=== PATIENT | male | born 1980 | race Caucasian/White ===

== ENCOUNTER 2017-02-18 00:18 | Observation (INO) | payer OTHER ==
--- NOTE | 2017-02-18 00:27 | ED ---
Abdominal Pain HPI - General Stated Complaint: apendix pain Time Seen by Provider: 02/18/17 00:18 Source: patient, RN/MD, EMS, RN notes reviewed, old records reviewed - History of Present Illness Initial Comments: This is a 36-year-old male with a benign past medical history states he started having lower abdominal pain at 6 PM yesterday. It persisted throughout the night. He finally went to [facility] past evening and had a workup which showed elevated white blood cell count and a computed tomography scan showed possible early appendicitis. Patient points to McBurney's point is area pain he currently is pain 1-2/10 severity no current nausea vomiting or other symptoms she did have chills and sweats with it started approximately 30 hours ago. He denies a nausea vomiting diarrhea dysuria hematuria at this time. He has no other medical problems he last ate at 3:30 PM this past afternoon. MD Complaint: abdominal pain Review of Systems ROS Statement: Those systems with pertinent positive or pertinent negative responses have been documented in the HPI. ROS Other: All systems not noted in ROS Statement are negative. General Exam - General Exam Comments Initial Comments: This is a well-developed well-nourished awake alert oriented times 3 male General appearance: alert, in no apparent distress Head exam: Present: atraumatic, normocephalic, normal inspection Eye exam: Present: normal appearance, PERRL, EOMI. Absent: scleral icterus, conjunctival injection, periorbital swelling ENT exam: Present: normal exam, mucous membranes moist Neck exam: Present: normal inspection. Absent: tenderness, meningismus, lymphadenopathy Respiratory exam: Present: normal lung sounds bilaterally. Absent: respiratory distress, wheezes, rales, rhonchi, stridor Cardiovascular Exam: Present: regular rate, normal rhythm, normal heart sounds. Absent: systolic murmur, diastolic murmur, rubs, gallop, clicks GI/Abdominal exam: Present: soft, tenderness (Right lower quadrant tenderness palpation over McBurney's point some voluntary guarding no rebound), normal bowel sounds. Absent: distended, guarding, rebound, rigid Rectal exam: Present: deferred Extremities exam: Present: normal inspection, full ROM, normal capillary refill. Absent: tenderness, pedal edema, joint swelling, calf tenderness Back exam: Present: normal inspection Neurological exam: Present: alert, oriented X3, CN II-XII intact Psychiatric exam: Present: normal affect, normal mood Skin exam: Present: warm, dry, intact, normal color. Absent: rash Medical Decision Making - Medical Decision Making I did review the report sent from [facility] patient will be admitted case was discussed with Dr. Bronwing Disposition Clinical Impression: Appendicitis, Abdominal pain Disposition: ADMITTED IP TO THIS [facility] Condition: Stable Referrals: Michelle Ovalle NPC [REFERRING] - 1-2 days
[2017-02-18] MEDS ORDERED: ONDANSETRON 4 MG/2 ML VIAL IVP PRN (00:31)
[2017-02-18] MEDS ORDERED: NALOXONE 0.4 MG/ML 1 ML VIAL IV PRN ×2 (00:31→18:40)
[2017-02-18] MEDS ORDERED: PIPERACILLIN-TAZOBACTAM 3.375 GM in DEXTROSE/WATER 1 50ML.BAG IVPB STA (00:43)
[2017-02-18] MEDS: SODIUM CHLORIDE 0.9% 1,000 ML IV STA ×2 (01:01→09:25)
[2017-02-18 01:53] VITALS: BMI 25.1
[2017-02-18] MEDS: HYDROmorphone 1 MG/ML 1 ML SYRINGE IV PRN ×3 (07:15→14:00)
[2017-02-18 08:30] LABS: Basophils % (A) 0 %; CH 29.9; CHCM 33.5; Eosinophils # (A) 0.1 k/uL (0-0.7); Eosinophils % (A) 1 %; HCT 46.1 % (39.0-53.0); HGB 15.7 gm/dL (13.0-17.5); Luc # (Auto) 0.12; Luc % (Auto) 1; Lymphocytes # (A) 1.2 k/uL (1.0-4.8); Lymphocytes % (A) 9 %; MCH 30.7 pg (25.0-35.0); MCHC 34.1 g/dL (31.0-37.0); MCV 89.8 fL (80.0-100.0); Mean Platelet Volume 7.4; Monocytes # (A) 0.5 k/uL (0-1.0); Monocytes % (A) 3 %; Neutrophils # (A) 11.7 k/uL (1.3-7.7); Neutrophils % (A) 86 %; RBC 5.13 m/uL (4.30-5.90); RDW 12.5 % (11.5-15.5); WBC 13.7 k/uL (3.8-10.6); WBC (Perox) 14.42
[2017-02-18 08:35] LABS: Anion Gap 9 mmol/L; Blood Urea Nitrogen 10 mg/dL (9-20); Calcium 9.1 mg/dL (8.4-10.2); Carbon Dioxide 23 mmol/L (22-30); Chloride 108 mmol/L (98-107); Glucose 101 mg/dL (74-99); Non-African American GFR(MDRD) >60 (>60 ml/min/1.73 sqM); Potassium 4.3 mmol/L (3.5-5.1); Sodium 140 mmol/L (137-145)
--- NOTE | 2017-02-18 11:35 | P.GSHP ---
History of Present Illness H&P Date: 02/18/17 Chief Complaint: Right lower quadrant pain 36-year-old male transferred from [facility] patient was being evaluated for right lower quadrant pain onset evening of the admission. Patient stated the pain continued to persist became concerned when to [facility] had a workup showed an elevated white count CAT scan showed possible early at appendicitis. Patient stated that he had been having the pain for's last 30 hours. Patient came into the [facility] was advised to be transferred to [facility] for further surgical workup. Patient continues to report having right lower quadrant abdominal pain. Reports no nausea vomiting. No shortness of breath no chest pain or dizziness lightheadedness Patient has no significant past medical history. The white count on admission was 13.7. Electrolytes within normal limits. - Review of Systems Comment: Essentially unremarkable except as mentioned in the present illness Past Medical History Past Medical History: No Reported History History of Any Multi-Drug Resistant Organisms: None Reported Past Surgical History: No Surgical Hx Reported Past Anesthesia/Blood Transfusion Reactions: No Reported Reaction Past Psychological History: No Psychological Hx Reported Smoking Status: Former smoker Past Alcohol Use History: None Reported Past Drug Use History: None Reported - Past Family History Mother Family Medical History: Unable to Obtain Medications and Allergies Home Medications Medication Instructions Recorded Confirmed Type No Known Home Medications [No 02/18/17 02/18/17 History Known Home Medications] Allergies Allergy/AdvReac Type Severity Reaction Status Date / Time No Known Allergies Allergy Verified 02/18/17 08:11 Surgical - Exam Vital Signs Temp Pulse Resp BP Pulse Ox 98.6 F 85 16 127/80 96 02/18/17 00:48 02/18/17 00:48 02/18/17 00:48 02/18/17 00:48 02/18/17 00:48 GENERAL APPEARANCE: 36-year-old male patient is alert, oriented, in no acute distress. Sitting up in a chair VITAL SIGNS: Reviewed HEENT: Head is normocephalic and atraumatic. Pupils are equal and reactive. The nares are patent. Oropharynx is clear without lesions. NECK: Supple without lymphadenopathy. Traches midline. HEART: S1, S2. Regular rate and rhythm. No murmur noted denying chest pain LUNGS: No crackles or wheezes are heard. Adequate air movement bilaterally on room air ABDOMEN: Soft, tenderness right lower quadrant, nondistended with good bowel sounds. No peritoneal signs. No palpable organomegaly or masses. EXTREMITIES: Normal skin color and turgor. No cyanosis, rash, ulceration, clubbing or edema. Radial pedal pulses are 2/4 bilaterally. NEUROLOGICAL: No focal deficits. Strength and sensation are grossly intact. Results - Labs 02/18/17 08:02 02/18/17 08:02 Abnormal Lab Results - Last 24 Hours (Table) 02/18/17 02/18/17 Range/Units 08:02 08:02 WBC 13.7 H (3.8-10.6) k/uL Neutrophils # 11.7 H (1.3-7.7) k/uL Chloride 108 H (98-107) mmol/L Glucose 101 H (74-99) mg/dL Diabetes panel 02/18/17 Range/Units 08:02 Sodium 140 (137-145) mmol/L Potassium 4.3 (3.5-5.1) mmol/L Chloride 108 H (98-107) mmol/L Carbon Dioxide 23 (22-30) mmol/L BUN 10 (9-20) mg/dL Creatinine 0.83 (0.66-1.25) mg/dL Glucose 101 H (74-99) mg/dL Calcium 9.1 (8.4-10.2) mg/dL Calcium panel 02/18/17 Range/Units 08:02 Calcium 9.1 (8.4-10.2) mg/dL Pituitary panel 02/18/17 Range/Units 08:02 Sodium 140 (137-145) mmol/L Potassium 4.3 (3.5-5.1) mmol/L Chloride 108 H (98-107) mmol/L Carbon Dioxide 23 (22-30) mmol/L BUN 10 (9-20) mg/dL Creatinine 0.83 (0.66-1.25) mg/dL Glucose 101 H (74-99) mg/dL Calcium 9.1 (8.4-10.2) mg/dL Adrenal panel 02/18/17 Range/Units 08:02 Sodium 140 (137-145) mmol/L Potassium 4.3 (3.5-5.1) mmol/L Chloride 108 H (98-107) mmol/L Carbon Dioxide 23 (22-30) mmol/L BUN 10 (9-20) mg/dL Creatinine 0.83 (0.66-1.25) mg/dL Glucose 101 H (74-99) mg/dL Calcium 9.1 (8.4-10.2) mg/dL Assessment and Plan Plan: Impression Present on admission nausea vomiting febrile with Right lower quadrant pain suspect due to appendicitis Present on admission leukocytosis suspect reactive CAT scan abdomen pelvis suspect early appendicitis Plan Continue IV Zosyn as ordered Pain control DVT and GI prophylaxis Patient scheduled today for a lap appendectomy The above impression and plan of care have been discussed and directed by signing physician. Beata Palacios nurse practitioner acting as scribe for signing physician.
[2017-02-18] MEDS ORDERED: IV FLUID CONTINUATION 1,000 ML IV ONE (16:10)
[2017-02-18] MEDS ORDERED: MIDAZOLAM 2 MG/2 ML VIAL ONE (18:07)
[2017-02-18] MEDS ORDERED: NEOSTIGMINE 1 MG/ML 10 ML VIAL ONE (18:07)
[2017-02-18] MEDS ORDERED: GLYCOPYRROLATE 0.2 MG/ML 2 ML VIAL ONE (18:07)
[2017-02-18] MEDS ORDERED: fentaNYL (PF) 50 MCG/ML 2 ML AMP ONE (18:07)
[2017-02-18] MEDS ORDERED: ROCURONIUM BROMIDE 10 MG/ML 10 ML VIAL IV ONE (18:07)
[2017-02-18] MEDS ORDERED: HYDROmorphone (PF) 1 MG/ML ONE (18:07)
[2017-02-18] MEDS ORDERED: BUPIVACAINE (PF) 0.25% 30 ML VIAL SQ ONE (18:07)
[2017-02-18] MEDS ORDERED: SUCCINYLCHOLINE CHLORIDE 100 MG/5 ML SYR IV ONE (18:07)
[2017-02-18] MEDS ORDERED: LIDOCAINE 1% INJ 10MG/ML (20 ML MDV) ONE (18:07)
[2017-02-18] MEDS ORDERED: PROPOFOL 10 MG/ML 20 ML VIAL IV ONE (18:07)
[2017-02-18] MEDS ORDERED: ONDANSETRON 4 MG/2 ML VIAL ONE (18:07)
[2017-02-18] MEDS ORDERED: DEXAMETHASONE SOD PHOS (MDV) 100 MG/10 ML VIAL ONE (18:07)
[2017-02-18] MEDS ORDERED: HEPARIN SODIUM,PORCINE 5,000 UNIT/ML 1 ML VIAL ONE (18:07)
[2017-02-18] MEDS ORDERED: SODIUM CHLORIDE 0.9% 50 ML with ceFAZolin 2,000 MG IV ONE ×2 (18:21)
[2017-02-18] MEDS ORDERED: HYDROcodone/APAP 5-325MG 1 EACH TAB PO PRN (18:40)
[2017-02-18] MEDS ORDERED: LACTATED RINGERS 1,000 ML IV ONE ×2 (18:40→18:43)
--- NOTE | 2017-02-18 18:44 | P.OP ---
Date of Procedure: 02/18/17 Preoperative Diagnosis: Appendicitis Postoperative Diagnosis: Acute appendicitis Procedure(s) Performed: laparoscopic appendectomy Anesthesia: STEPHANIE Surgeon: Benjamin Browning Estimated Blood Loss (ml): 5 Pathology: other (Appendix) Condition: stable Description of Procedure: HarmThe patient's placed on the operating table in the supine position. The patient received general anesthesia. The abdomen was prepped and draped in the usual sterile fashion. The skin was anesthetized 1% local Xylocaine at the trocar sites. Using an 11 blade the skin was incised at the umbilicus. The umbilicus was grasped with a Dany clamp and then a Veress needle was placed into the peritoneal cavity. Position of the Veress needle was confirmed with positive drop test. After adequate insufflation a 5 mm trocar was placed into the peritoneal cavity. The abdomen was further insufflated. And then the laparoscope was placed in the peritoneal cavity. Next a 5 mm trocar was placed in the midline suprapubic position. And then a 10 mm trocar was placed in the midline epigastric position. The patient was rotated with the right side up and in Trendelenburg. The appendix was visualized. The appendix appeared to be inflamed. The appendix was grasped and then using the Harmonic scissors the mesoappendix was divided. A PDS Endoloop was then placed around the base of the appendix. And then the appendix was divided using Harmonic scissors. The appendix was placed into an Endo Catch and brought out through the 10 mm trocar site. The abdomen was irrigated. There is no bleeding seen. The trochars withdrawn. The skin was closed interrupted 3-0 Monocryl suture. Dermabond dressing was applied. Patient was sent to recovery room in stable condition.
[2017-02-18] MEDS: KETOROLAC 30 MG/ML 1 ML VIAL IVP SCH (20:19)
[2017-02-19] MEDS: KETOROLAC 30 MG/ML 1 ML VIAL IVP SCH ×3 (01:28→13:07)
[2017-02-19 07:02] VITALS: RESP 15
[2017-02-19] MEDS ORDERED: ENOXAPARIN 40 MG/0.4 ML SYRINGE SQ SCH (09:00)
[2017-02-19 10:45] VITALS: BP 112/66; PULSE 72; TEMP 97.9
--- NOTE | 2017-02-19 12:44 | P.DS ---
Providers Date of admission: 02/18/17 00:31 Expected date of discharge: 02/19/17 Attending physician: Benjamin Denis Primary care physician: [facility] Course: 36 year old male transferred from [facility] were patient presented to to be evaluated for right lower quadrant pain onset evening of admission. Patient stated he became concerned the pain continued to persist went to [facility] had a workup done for the right lower quadrant pain. The CAT scan of the abdomen pelvis suggest early appendicitis. Patient was advised to be transferred to [facility] to be admitted to surgical service for further surgical workup. Patient has no significant past medical history takes no prescription or [id number] meds. On admission the white count was 13. Patient elected to proceed and on February 18 underwent a lap appendectomy for acute appendicitis. The day of discharge patient was up ambulatory on the unit passing gas rectally and belching pain medication effective for pain control endoscopic site no redness surgical tenderness appropriate patient was felt to be appropriate to be discharged to home Impression discharge diagnosis Present on admission nausea vomiting febrile with Right lower quadrant pain suspect due to appendicitis Present on admission leukocytosis suspect reactive CAT scan abdomen pelvis suspect early appendicitis Status post February 18 laparoscopic appendectomy for acute appendicitis The above impression and plan of care have been discussed and directed by signing physician. Beata Palacios nurse practitioner acting as scribe for signing physician. Patient Condition at Discharge: Stable Plan - Discharge Summary New Discharge Prescriptions: New HYDROcodone/APAP 5-325MG [[place] 5-325] 1 tab PO Q4HR PRN #20 tab PRN Reason: Mild Breakthrough Pain Ibuprofen [Motrin] 200 - 400 mg PO Q6HR PRN #30 tab PRN Reason: Mild Pain Acetaminophen Tab [Tylenol Tab] 650 mg PO Q6H #30 tablet Discharge Medication List Acetaminophen Tab [Tylenol Tab] 650 mg PO Q6H #30 tablet 02/19/17 [Rx] HYDROcodone/APAP 5-325MG [[place] 5-325] 1 tab PO Q4HR PRN #20 tab 02/19/17 [Rx] Ibuprofen [Motrin] 200 - 400 mg PO Q6HR PRN #30 tab 02/19/17 [Rx] Follow up Appointment(s)/Referral(s): Michelle Ovalle NPC [REFERRING] - 02/21/17 9:30 am Benjamin Denis MD [STAFF PHYSICIAN] - 02/25/17 4:00 pm Patient Instructions/Handouts: Appendicitis (GEN), Laparoscopic Appendectomy ( DC) Activity/Diet/Wound Care/Special Instructions: No lifting over 4 pounds May shower daily No tub bath until seen in the follow-up visit Report any redness at surgical sites fever chills abdominal pain not managed with current pain medication to the attending No strenuous activities until seen in the follow-up visit May return to work after seen in Dr. denis office and a follow-up visit Discharge Disposition: HOME SELF-CARE
== END 2017-02-19 14:00 | disposition home or self-care (01) ==
LOC: EC 00:18 → SUPCPDRO 00:18 → 5MS5E 00:31
PROVIDERS: ADMIT Surgery; ATTEND Surgery
DX: K35.80 Unspecified acute appendicitis (principal); Z87.891 Personal history of nicotine dependence
CPT/HCPCS: 44970; 96376; 96374; 96375; 99285; 88304; 80048; 85025; G0378 ×2; J2250; J1644; J2710; J2405; J2001; J1650; J3010; J1885 ×2; J1170; J2543; J0690; J1100; J0330; J2704; 96365; 96366